=== PATIENT | female | born 1995 | race Caucasian/White ===

== ENCOUNTER 2018-12-05 14:09 | Emergency (ER) | payer BC, OTHER ==
[~2018-12-05] VITALS: Ht 165.1 cm; Wt 77.1 kg
[~2018-12-05 14:09] MED LIST: AMPHETAMINE SAL15 MG PO; CLONIDINE HCL0.2 MG PO; CYCLAFEM1 EACH PO; CYMBALTA30 MG PO; CYMBALTA60 MG PO; GABAPENTIN300 MG PO; GLUCAGON EMERGEN1 MG INJ; L-METHYLFOLATE15 M1 PO; NOVOLOG100 UNIT/1 SQ; SYNTHROID88 MCG PO; VITAMIN B-121000 MCG PO; ZOFRAN ODT8 MG PO; ZOFRAN8 MG PO
[2018-12-05] MEDS ORDERED: NORETHINDRONE0.35 MG PO (14:24)
[2018-12-05] MEDS ORDERED: CYCLOBENZAPRINE5 MG PO (15:26)
== END 2018-12-05 15:40 | disposition home or self-care (01) ==
LOC: ED 14:09
DX: G44.209 Tension-type headache, unspecified, not intractable (principal); E10.9 Type 1 diabetes mellitus without complications; E03.9 Hypothyroidism, unspecified; Z79.899 Other long term (current) drug therapy
CPT/HCPCS: 70450; 96372; 99284-25; J1885

== ENCOUNTER 2020-03-07 18:59 | Emergency (ER) | payer BC ==
[~2020-03-07] VITALS: Ht 165.1 cm; Wt 79.4 kg
[~2020-03-07 18:59] MED LIST changes: +CYCLOBENZAPRINE5 MG PO; +NORETHINDRONE0.35 MG PO
[2020-03-07] MEDS ORDERED: NORCO 5-325 TA1 EACH PO (22:02)
== END 2020-03-07 22:32 | disposition home or self-care (01) ==
LOC: ED 18:59
DX: N83.291 Other ovarian cyst, right side (principal); E11.9 Type 2 diabetes mellitus without complications; E03.9 Hypothyroidism, unspecified; Z88.5 Allergy status to narcotic agent; Z79.899 Other long term (current) drug therapy; Z96.41 Presence of insulin pump (external) (internal)
CPT/HCPCS: 74177; 80053; 81001; 84703; 85025; 96361; 99284-25; J2405; J7030; Q9967

== ENCOUNTER 2022-04-04 12:09 | Emergency (ER) | payer BC, OTHER ==
[~2022-04-04] VITALS: Ht 165.1 cm; Wt 79.4 kg
[~2022-04-04 12:09] MED LIST changes: +NORCO 5-325 TA1 EACH PO
== END 2022-04-04 14:45 | disposition home or self-care (01) ==
LOC: ED 12:09
DX: L55.0 Sunburn of first degree (principal); E11.65 Type 2 diabetes mellitus with hyperglycemia; E03.9 Hypothyroidism, unspecified; Z79.4 Long term (current) use of insulin
CPT/HCPCS: 36415; 80053; 81001; 82800; 84703; 85025; 96374; 99284-25; J2405; J7030

== ENCOUNTER 2023-08-23 02:01 | Emergency (ER) | payer BC, OTHER ==
[~2023-08-23] VITALS: Ht 167.6 cm; Wt 104.3 kg
[2023-08-23 02:36] LABS: BASOPHILS 1.1 % (0-2); EOSINOPHILS 2.8 % (0-6); HEMATOCRIT 40.3 % (35.0-50.0); HEMOGLOBIN 13.6 g/dL (12.0-18.0); LYMPHOCYTES 27.3 % (24-44); MCH 29.4 (27-36); MCHC 33.7 g/dl (30-36); MCV 87.2 fl (81-99); MONOCYTES 6.1 % (0-12); NEUTROPHILS 62.7 % (39-80); PLATELET COUNT 321 K/uL (140-440); RBC 4.62 M/ul (4.3-5.7); RDW 14.1 (10.5-15.0)
[2023-08-23 02:56] LABS: ALBUMIN/GLOBULIN RATIO 1.05 (1.1-2.4); ANION GAP 13.7 (7-21); BILIRUBIN, TOTAL 0.2 ng/dL (0.2-1.0); BUN/CREATININE RATIO 18.51 (6.0-28.6); CALCIUM 8.6 mg/dL (8.5-10.1); CREATININE, SERUM 1.08 mg/dL (0.55-1.02); POTASSIUM 3.7 mmol/L (3.5-5.1); PROTEIN, TOTAL 7.8 g/dL (6.4-8.2)
[2023-08-23 03:14] LABS: INFLUENZA B NAA NEGATIVE (NEGATIVE); RESPIRATORY SYNCYTIAL VIR NAA NEGATIVE (NEGATIVE)
[2023-08-23 03:23] LABS: BILIRUBIN, URINE NEGATIVE (negative); BLOOD/HGB, URINE NEGATIVE (Negative); KETONE, URINE NEGATIVE (Negative); LEUK ESTERASE, URINE NEGATIVE (negative); NITRITE, URINE NEGATIVE (negative)
[2023-08-23 03:40] VITALS: BP 131/90
== END 2023-08-23 03:44 | disposition home or self-care (01) ==
LOC: ED 02:01
PROVIDERS: Internal Medicine
DX: E86.0 Dehydration (principal); E10.65 Type 1 diabetes mellitus with hyperglycemia; Z96.41 Presence of insulin pump (external) (internal); E03.9 Hypothyroidism, unspecified; J45.998 Other asthma; Z88.5 Allergy status to narcotic agent; Z79.899 Other long term (current) drug therapy; Z79.84 Long term (current) use of oral hypoglycemic drugs; Z20.822 Contact with and (suspected) exposure to COVID-19
CPT/HCPCS: 36415; 80053; 81003; 82010; 83690; 84703; 85025; 87502; 87651; J7121; U0002

== ENCOUNTER 2024-10-02 10:53 | Emergency (ER) | payer OTHER, BC ==
[~2024-10-02] VITALS: Ht 167.6 cm; Wt 103.0 kg
[~2024-10-02 10:53] MED LIST changes: +LISINOPRIL10 MG PO; +MONTELUKAST SOD10 MG PO; +PREDNISONE20 MG PO; +QVAR REDIHALE10.6 G1 INH; +VITAMIN D21250 MCG PO
[2024-10-02] MEDS ORDERED: ASPIRIN 81 MG CHEW PO ONE (11:15)
[2024-10-02 11:16] LABS: BASOPHILS 0.9 % (0-2); EOSINOPHILS 2.4 % (0-6); HEMOGLOBIN 14.2 g/dL (12.0-18.0); LYMPHOCYTES 34.2 % (24-44); MCH 29.4 (27-36); MCV 86.6 fl (81-99); MONOCYTES 7.6 % (0-12); NEUTROPHILS 54.9 % (39-80); PLATELET COUNT 410 K/uL (140-440); RBC 4.85 M/ul (4.3-5.7); RDW 13.6 (10.5-15.0)
[2024-10-02] MEDS ORDERED: KETOROLAC TROMETHAMINE 15 MG/ML VIAL IV ONE (11:30)
[2024-10-02 11:43] LABS: ALBUMIN 3.8 g/dL (3.4-5.0); ALKALINE PHOSPHATASE 83 U/L (46-116); ALT (SGPT) 12 U/L (14-59); ANION GAP 10.8 (7-21); AST (SGOT) 9 U/L (15-37); BILIRUBIN, TOTAL 0.6 ng/dL (0.2-1.0); BUN/CREATININE RATIO 17.34 (6.0-28.6); CALCIUM 9.8 mg/dL (8.5-10.1); CARBON DIOXIDE 28 mmol/L (21-32); CHLORIDE 100 mmol/L (98-107); CREATININE, SERUM 0.98 mg/dL (0.55-1.02); GLOMERULAR FILTRATION RATE,EST 82 mL/min (>60); MAGNESIUM 1.9 mg/dL (1.8-2.4); POTASSIUM 3.8 mmol/L (3.5-5.1); UREA NITROGEN 17 mg/dL (7-18)
[2024-10-02 12:43] VITALS: BP 127/76
--- NOTE | 2024-10-02 19:30 | EKG ---
[facility] [address] [facility] [place], [place] [address] Signed Sinus tachycardia Otherwise normal ECG No previous ECGs available Confirmed by Garett Timmons MD ([id number]) on 10/02/2024 7:30:31 PM Electronically Signed By: GARETT TIMMONS MD 10/02/241929 PATIENT NAME: MANNY ESTES Electrocardiogram DATE OF : [birth year] PHYSICIAN: GARETT TIMMONS MD REPORT #: [id number] REPORT IS CONFIDENTIAL AND NOT TO BE RELEASED WITHOUT AUTHORIZATION
== END 2024-10-02 12:44 | disposition home or self-care (01) ==
LOC: ED 10:53
PROVIDERS: Emergency Medicine
DX: R07.89 Other chest pain (principal); E10.9 Type 1 diabetes mellitus without complications; Z79.4 Long term (current) use of insulin; Z88.5 Allergy status to narcotic agent; Z79.899 Other long term (current) drug therapy; Z79.890 Hormone replacement therapy
CPT/HCPCS: 36415; 71045; 80053; 83735; 84484; 85025; 85379; 93005; 93010; 96374; 99285-25; J1885